=== PATIENT | female | born 1965 | race Caucasian/White ===

== ENCOUNTER 2017-08-01 06:57 | Emergency (ER) | payer OTHER | END 2017-08-01 08:20 | disposition home or self-care (01) | LOC: FTE 06:57 | DX: L02.412 Cutaneous abscess of left axilla (principal) | CPT/HCPCS: 99283; Z7502 ==

== ENCOUNTER 2017-09-18 10:38 | Emergency (ER) | payer OTHER ==
[2017-09-18 11:40] LABS: ADD MAN DIFF? NO
[2017-09-18 11:41] LABS: BASOPHILS % 0.5 % (0.0-2.0); EOSINOPHILS # 0.2 10^3/ul (0.0-0.5); EOSINOPHILS % 1.9 % (0.0-7.0); HEMATOCRIT 43.2 % (37.0-47.0); HEMOGLOBIN 14.7 g/dl (12.0-16.0); LYMPHOCYTES # 2.8 10^3/ul (0.8-2.9); LYMPHOCYTES % 32.7 % (15.0-51.0); MEAN CORPUSCULAR HEMOGLOBIN 30.5 pg (29.0-33.0); MEAN CORPUSCULAR VOLUME 89.6 fl (82.0-101.0); MEAN PLATELET VOLUME 10.6 fl (7.4-10.4); MONOCYTE # 0.6 10^3/ul (0.3-0.9); MONOCYTES % 6.9 % (0.0-11.0); NEUTROPHIL # 4.9 10^3/ul (1.6-7.5); NEUTROPHILS % 57.8 % (39.0-77.0); PLATELET COUNT 312 10^3/UL (140-415); RED BLOOD COUNT 4.82 10^6/ul (4.20-5.40); RED CELL DISTRIBUTION WIDTH 12.2 % (11.5-14.5)
[2017-09-18 11:41] LABS: WHITE BLOOD COUNT 8.5 10^3/ul (4.8-10.8)
[2017-09-18 12:02] LABS: ANION GAP 18 (8-16); BLOOD UREA NITROGEN 14 mg/dl (7-20); CALCIUM 9.3 mg/dl (8.4-10.2); CARBON DIOXIDE 26 mmol/L (21-31); CHLORIDE 103 mmol/L (97-110); CREATININE 0.85 mg/dl (0.44-1.00); GLUCOSE 126 mg/dl (70-220); SODIUM 143 mmol/L (135-144)
[2017-09-18 12:16] LABS: TROPONIN-I < 0.012 ng/ml (0.00-0.12)
== END 2017-09-18 12:40 | disposition home or self-care (01) ==
LOC: E/R 10:38
DX: R07.9 Chest pain, unspecified (principal); R40.2142 Coma scale, eyes open, spontaneous, at arrival to emergency department; R40.2252 Coma scale, best verbal response, oriented, at arrival to emergency department; R40.2362 Coma scale, best motor response, obeys commands, at arrival to emergency department
CPT/HCPCS: 36415; 71045; 80048; 84484; 85025; 93005; 99285-25

== ENCOUNTER 2018-02-10 14:11 | Emergency (ER) | payer OTHER ==
[2018-02-10] MEDS: HYDROCODONE/APAP (5/325) TAB PO (16:13)
[2018-02-10] MEDS: ONDANSETRON (ODT) 4 MG TAB ODT (16:13)
== END 2018-02-10 16:10 | disposition home or self-care (01) ==
LOC: FTE 14:11
DX: R52 Pain, unspecified (principal)
CPT/HCPCS: 99283; Z7502